=== PATIENT | male | born 1995 | race Caucasian/White ===

== ENCOUNTER 2018-05-02 19:31 | Emergency (ER) | payer OTHER ==
[~2018-05-02] VITALS: Ht 177.8 cm; Wt 74.6 kg
[~2018-05-02 19:31] MED LIST: CARB200T PO; CITA10TA4 PO
[2018-05-02 19:43] VITALS: BP 114/63
[2018-05-02] MEDS ORDERED: DEXAMETHASONE 4 MG TABLET PO ONE (20:00)
[2018-05-02] MEDS ORDERED: ACETAMINOPHEN 500 MG TABLET PO ONE (20:00)
[2018-05-02] MEDS ORDERED: DEXAMETHASONE 4 MG TABLET ONE (20:01)
[2018-05-02] MEDS ORDERED: ACETAMINOPHEN 500 MG TABLET ONE (20:01)
[2018-05-02] MEDS ORDERED: KETOROLAC 30 MG/1 ML ONE (20:09)
[2018-05-02] MEDS ORDERED: BICILLIN-LA 1,200,000 UNITS/2 ML IM ONE (20:30)
[2018-05-02] MEDS ORDERED: KETOROLAC 30 MG/1 ML IM ONE (20:30)
== END 2018-05-02 20:32 | disposition home or self-care (01) ==
LOC: ED 20:22
DX: J02.0 Streptococcal pharyngitis (principal)
CPT/HCPCS: 96372; 99284; J0561; J1885

== ENCOUNTER 2020-04-12 19:03 | Emergency (ER) | payer MEDICAID, OTHER ==
[~2020-04-12] VITALS: Ht 177.8 cm; Wt 67.8 kg
[2020-04-12 19:35] VITALS: BP 118/77
--- NOTE | 2020-04-12 21:47 | NUR ---
PT TO ROOM FROM LOBBY
--- NOTE | 2020-04-12 23:08 | NUR ---
Patient given discharge instructions and they have confirmed that they understand the instructions. Patient ambulatory with steady gait. nad, p/W/D. DENIES ADDITIONAL NEEDS OR QUESTIONS. NO BELONGINGS IN ROOM AFTER DC.
== END 2020-04-12 23:23 | disposition home or self-care (01) ==
LOC: ED 23:00
DX: M54.5 Low back pain (principal); M54.6 Pain in thoracic spine; M79.641 Pain in right hand
CPT/HCPCS: 72072; 99284

== ENCOUNTER 2020-12-04 23:35 | Emergency (ER) | payer SELFPAY ==
[~2020-12-04] VITALS: Ht 177.8 cm; Wt 69.0 kg
[2020-12-05] MEDS ORDERED: SODIUM CHLORIDE 0.9% 1,000ML IVBOLUS ONE
[2020-12-05] MEDS ORDERED: SODIUM CHLORIDE FLUSH 10ML SYR IVF ONE
[2020-12-05 00:24] LABS: BASOPHILS % (AUTO) 1 % (0-1); EOSINOPHILS % (AUTO) 2 % (1-7); LYMPHOCYTES % (AUTO) 16 % (22-44); MEAN CORPUSCULAR HEMOGLOBIN 30.7 pg (27.5-34.5); MEAN CORPUSCULAR HGB CONC 34.1 g/dL (33.2-36.2); MEAN PLATELET VOLUME 7.2 fL (7.4-10.4); MONOCYTES % (AUTO) 7 % (2-9); NEUTROPHILS % (AUTO) 74 % (42-75); PLATELET COUNT 242 x10^3/uL (130-400); RED BLOOD COUNT 4.39 x10^6/uL (4.38-5.82); RED CELL DISTRIBUTION WIDTH 13.2 % (9.4-14.8)
[2020-12-05 00:25] LABS: MD NO
[2020-12-05 00:36] LABS: ALBUMIN 3.9 g/dL (3.4-5.0); ANION GAP 4 mmol/L (5-15); CALCIUM 9.2 mg/dL (8.5-10.1); CHLORIDE 106 mmol/L (98-107); CREATININE 1.12 mg/dL (0.7-1.3)
[2020-12-05 01:27] VITALS: BP 126/76
== END 2020-12-05 02:13 | disposition home or self-care (01) ==
LOC: ED 12-05 02:06
DX: T40.601A Poisoning by unspecified narcotics, accidental (unintentional), initial encounter (principal); Y92.9 Unspecified place or not applicable
CPT/HCPCS: 36415; 80048; 82040; 85025; 96360; 99283; J7030